=== PATIENT | female | born 1975 | race Two or more races ===

== ENCOUNTER 2022-10-30 18:48 | Emergency (ER) | payer BC, OTHER ==
[~2022-10-30] VITALS: Ht 157.5 cm; Wt 62.7 kg
[2022-10-30] MEDS ORDERED: IBUP-1455 PO (23:21)
[2022-10-30] MEDS ORDERED: KETOROLAC TROMETH 30 MG/ML 1ML VIAL IM ONE (23:30)
[2022-10-30 23:49] VITALS: BP 143/87
== END 2022-10-31 00:34 | disposition home or self-care (01) ==
LOC: ER 18:58
DX: R07.89 Other chest pain (principal); R07.81 Pleurodynia
CPT/HCPCS: 71045; 96372; 99283; J1885